=== PATIENT | female | born 1985 | race American Indian/Alaskan Native ===

== ENCOUNTER 2019-05-01 13:32 | Emergency (ER) | payer SELFPAY ==
[2019-05-01 13:38] VITALS: BP 140/81
--- NOTE | 2019-05-01 13:38 | Event Note ---
ED Screening Note Date of service: 05/01/19 Time: 13:36 ED Screening Note: This is a 33 y.o. F. that presents to the ER with facial swelling and BUE swelling since last night. Taken Benadryl this morning. This initial assessment/diagnostic orders/clinical plan/treatment(s) is/are subject to change based on patients health status, clinical progression and re- assessment by fellow clinical providers in the ED. Further treatment and workup at subsequent clinical providers discretion. Patient/guardian urged not to elope from the ED as their condition may be serious if not clinically assessed and managed. Initial orders include:
[2019-05-01] MEDS ORDERED: predniSONE 20 MG TAB PO ONE (13:59)
[2019-05-01] MEDS ORDERED: FAMOTIDINE 20 MG TAB PO ONE (13:59)
--- NOTE | 2019-05-01 14:12 | Emergency Department Report ---
ED Allergic Reaction HPI - General Chief complaint: Fall Stated complaint: ALLERGIC REACTION/SKIN BREAKOUT Time Seen by Provider: 05/01/19 13:35 Source: patient Mode of arrival: Ambulatory Limitations: No Limitations - History of Present Illness Initial Comments: Ms. Charlton is a 33 yo female without significant past medical hx who presents with left eye swelling bilateral upper extremity rash. She started having breakouts 2 years ago. Normally hydrocortisone cream improves symptoms. However the eye swelling is a new symptom. Denies lip or throat swelling. However within the last year she did an episoee of lip swelling. Desires referral to per diem rn. Complaint: allergic reaction, other (rash left eye swelling) -: Gradual, During the night Exposure: unknown Symptoms: rash, facial swelling Severity: mild Treatment Prior to Arrival: benadryl Previous Allergy History: angioedema - Related Data Previous Rx's Medication Instructions Recorded Last Taken Type Famotidine [Pepcid] 20 mg PO BID 4 Days #8 tablet 05/01/19 Unknown Rx Hydrocortisone 1% [Hydrocortisone 1 applicatio TP TID 7 Days #1 tube 05/01/19 Unknown Rx 1% CREAM] diphenhydrAMINE [Benadryl CAP] 25 mg PO TID 4 Days #12 capsule 05/01/19 Unknown Rx predniSONE [Deltasone] 3 tab PO QDAY 3 Days #9 tab 05/01/19 Unknown Rx Allergies Allergy/AdvReac Type Severity Reaction Status Date / Time No Known Allergies Allergy Unverified 05/01/19 13:34 ED Review of Systems ROS: Stated complaint: ALLERGIC REACTION/SKIN BREAKOUT Other details as noted in HPI Comment: All other systems reviewed and negative Constitutional: denies: diaphoresis, malaise Respiratory: denies: cough, shortness of breath, wheezing Cardiovascular: denies: chest pain Skin: rash, lesions ED Past Medical Hx - Past Medical History Previous Medical History?: No - Surgical History Past Surgical History?: No - Social History Smoking Status: Never Smoker - Medications Home Medications: Home Medications Medication Instructions Recorded Confirmed Last Taken Type Famotidine [Pepcid] 20 mg PO BID 4 Days #8 tablet 05/01/19 Unknown Rx Hydrocortisone 1% [Hydrocortisone 1 applicatio TP TID 7 Days #1 tube 05/01/19 Unknown Rx 1% CREAM] diphenhydrAMINE [Benadryl CAP] 25 mg PO TID 4 Days #12 capsule 05/01/19 Unknown Rx predniSONE [Deltasone] 3 tab PO QDAY 3 Days #9 tab 05/01/19 Unknown Rx ED Physical Exam - General Limitations: No Limitations General appearance: alert, in no apparent distress - Head Head exam: Present: atraumatic, normocephalic - Eye Eye exam: Present: normal appearance, periorbital swelling (left-sided) - ENT ENT exam: Present: mucous membranes moist - Neck Neck exam: Present: normal inspection, full ROM - Respiratory Respiratory exam: Present: normal lung sounds bilaterally. Absent: respiratory distress, wheezes, rales, rhonchi - Cardiovascular Cardiovascular Exam: Present: regular rate, normal rhythm, normal heart sounds. Absent: systolic murmur, diastolic murmur, rubs, gallop - GI/Abdominal GI/Abdominal exam: Present: soft, normal bowel sounds. Absent: distended, tenderness, guarding, rebound - Extremities Exam Extremities exam: Present: normal inspection - Back Exam Back exam: Present: normal inspection - Neurological Exam Neurological exam: Present: alert, oriented X3 - Psychiatric Psychiatric exam: Present: normal affect, normal mood - Skin Skin exam: Present: warm, dry, intact, normal color, other (small erythematous patch right forearm, small erythematous patch left bicep). Absent: rash ED Course Vital Signs 05/01/19 13:36 Temperature 98.4 F Pulse Rate 78 Respiratory 18 Rate Blood Pressure 140/81 O2 Sat by Pulse 100 Oximetry ED Medical Decision Making - Medical Decision Making Contact allergic dermatitis versus systemic allergic reaction recommended [id number] hydrocortisone cream. Prescribed diphenhydramine, prednisone, Pepcid Critical care attestation.: If time is entered above; I have spent that time in minutes in the direct care of this critically ill patient, excluding procedure time. ED Disposition Clinical Impression: Contact dermatitis, allergic Disposition: [id number] TO HOME OR SELFCARE Is pt being admited?: No Does the pt Need Aspirin: No Condition: Stable Instructions: Contact Dermatitis (ED) Prescriptions: diphenhydrAMINE [Benadryl CAP] 25 mg PO TID 4 Days #12 capsule predniSONE [Deltasone] 3 tab PO QDAY 3 Days #9 tab Hydrocortisone 1% [Hydrocortisone 1% CREAM] 1 applicatio TP TID 7 Days #1 tube Famotidine [Pepcid] 20 mg PO BID 4 Days #8 tablet Referrals: ARABELLA TRAN MD [Referring] - 3-5 Days MARY MANNING MD [Referring] - 3-5 Days Forms: Work/School Release Form(ED)
== END 2019-05-01 14:36 | disposition home or self-care (01) ==
LOC: ED 13:32
DX: L23.9 Allergic contact dermatitis, unspecified cause (principal); Z79.899 Other long term (current) drug therapy
CPT/HCPCS: 99282; J7512